=== PATIENT | female | born 1995 | race Caucasian/White ===

== ENCOUNTER 2018-06-29 17:28 | Emergency (ER) | payer OTHER ==
[~2018-06-29] VITALS: Ht 182.9 cm; Wt 170.1 kg
[2018-06-29 19:35] LABS: BILIRUBIN,URINE NEGATIVE (NEGATIVE); CLARITY,URINE HAZY (CLEAR); COLOR,URINE YELLOW (YELLOW); KETONES,URINE NEGATIVE (NEGATIVE); LEUKOCYTE ESTERASE ,URINE 1+ (NEGATIVE); NITRITE,URINE NEGATIVE (NEGATIVE); PROTEIN,URINE DIPSTICK NEGATIVE (NEGATIVE); URINE UROBILINOGEN 0.2 mg/dL (0.2 - 1)
[2018-06-29 19:36] LABS: BACTERIA,URINE FEW /HPF; EPITHELIAL CELLS,URINE MODERATE /LPF; RBC,URINE 0-5 /HPF (0-5)
[2018-06-29 19:37] LABS: PREGNANCY TEST, URINE NEGATIVE (NEGATIVE)
== END 2018-06-29 21:18 | disposition home or self-care (01) ==
LOC: ER 17:28
DX: M54.5 Low back pain (principal); S39.012A Strain of muscle, fascia and tendon of lower back, initial encounter; N30.90 Cystitis, unspecified without hematuria
CPT/HCPCS: 81001; 81025; 87086; 99283